=== PATIENT | female | born 1980 | race Caucasian/White ===

== ENCOUNTER → 2025-08-13 | Day surgery (SDC) | payer MEDICAID ==
[~2025-08-13] VITALS: Ht 157.5 cm; Wt 56.2 kg
[~2025-08-13] MED LIST: BUPIVACAINE HCL/PF 0.5% (5MG/ML) 10ML ONE; CEFAZOLIN SODIUM 1000MG/VIAL ONE; DEXAMETHASONE 4MG/ML 1ML VIAL ONE; FAMOTIDINE 20MG/2ML VIAL IV ONE; FENTANYL CITRATE/PF 50MCG/ML 2ML VIAL ONE; HYDROMORPHONE HCL/PF 1MG/ML INJ ONE; KETOROLAC 30MG/ML VIAL ONE; LIDOCAINE HCL 1% 10 MG/ML 10ML VIAL ONE; MIDAZOLAM HCL 2 MG/2 ML VIAL ONE; NORE-80 PO; ONDANSETRON HCL 4MG/2ML INJ ONE; PROPOFOL 200MG/20ML VIAL IV ONE; ROCURONIUM BROMIDE 10MG/ML VIAL 5ML IV ONE; SKIN ADHESIVE 0.7 GM EA TOP ONE
[2025-08-13 07:52] LABS: UCG SCREEN NEGATIVE
[2025-08-13] MEDS: LACTATED RINGERS 1,000 ML IV SCH (08:25)
[2025-08-13 13:06] VITALS: BP 128/73; PULSE 93; RESP 22
[2025-08-13] MEDS: ACETAMINOPHEN WITH CODEINE 300/30MG TABLET PO NR (13:06)
[2025-08-13] MEDS: ONDANSETRON HCL 4MG/2ML INJ IV SCH (13:13)
== END | disposition home or self-care (01) ==
LOC: OR 06:34
PROVIDERS: ATTEND Surgery
DX: K80.10 Calculus of gallbladder with chronic cholecystitis without obstruction (principal); Z86.2 Personal history of diseases of the blood and blood-forming organs and certain disorders involving the immune mechanism; Z90.710 Acquired absence of both cervix and uterus; Z98.890 Other specified postprocedural states; Z79.899 Other long term (current) drug therapy
CPT/HCPCS: 47562; 81025; 88304; J1885; J3010; J0665; J0690; J1100; J1308; J2003; J2250; J2405; J2704; J3490; J1171; J7030; A4217